=== PATIENT | female | born 1965 | race American Indian/Alaskan Native ===

== ENCOUNTER 2017-07-08 10:08 | Outpatient (CLI) | payer OTHER ==
--- NOTE | 2017-07-09 13:28 | Mammography Report ---
BILATERAL DIGITAL SCREENING MAMMOGRAM with CAD: 07/08/17 10:08:00 CLINICAL: Routine screening. COMPARISON:[facility] 2014 and 2013 mammograms FINDINGS: The breasts are almost entirely fatty.Bilateral benign parenchymal lymph nodes are stable. Stable left inner periareolar circumscribed irregular mass. No new mass, architectural distortion or suspicious calcifications. IMPRESSION: No mammographic evidence of malignancy. BI-RADS CATEGORY: 2 -- Benign RECOMMENDATION: Routine mammographic screening in one year. COMMENT: Patient follow-up letters are generated by our [employer] application.
== END 2017-07-08 10:09 | disposition home or self-care (01) ==
LOC: SPVWC 10:08
PROVIDERS: ATTEND Nurse Practitioner Family
DX: Z12.31 Encounter for screening mammogram for malignant neoplasm of breast (principal)
CPT/HCPCS: 77067; G0202

== ENCOUNTER 2017-07-31 22:48 | Emergency (ER) | payer OTHER ==
[2017-08-01] MEDS ORDERED: ULTRAM PO ONE (02:19)
[2017-08-01] MEDS ORDERED: MOTRIN PO ONE (02:19)
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
[2017-08-01 04:05] VITALS: BP 126/69
== END 2017-08-01 04:05 | disposition home or self-care (01) ==
LOC: ED 22:48
DX: M54.2 Cervicalgia (principal); M54.9 Dorsalgia, unspecified; Z91.040 Latex allergy status; Z88.8 Allergy status to other drugs, medicaments and biological substances; V89.2XXA Person injured in unspecified motor-vehicle accident, traffic, initial encounter; Y93.89 Activity, other specified; Y92.89 Other specified places as the place of occurrence of the external cause; Y99.8 Other external cause status
CPT/HCPCS: 72040; 72100; 99283